=== PATIENT | male | born 1955 | race Caucasian/White ===

== ENCOUNTER 2021-06-27 14:31 | Outpatient (CLI) | payer MEDICARE ==
[2021-06-27 16:08] LABS: #Basophils 0.1 10x3/uL (0.0-0.2); #Eosinphils 0.7 10x3/uL (0.0-0.5); %Basophils 1.1 % (0.0-2.0); %Eosinophils 5.8 % (0.0-6.0); %Lymphocytes 20.3 % (18.0-47.0); %Monocytes 7.8 % (0.0-10.0); %Neutrophils 64.7 % (40.0-75.0); Hemoglobin 13.5 g/dL (13.5-17.5); Mean Corpuscular HGB CONC 32.8 g/dL (32.0-36.0); Mean Corpuscular Hemoglobin 30.7 pg (27.0-33.0); Mean Corpuscular Volume 93.6 fl (81.2-95.1); Mean Platelet Volume 10.3 fl (7.4-10.4); Platelet Count 217 10x3/uL (150-450); RBC Distribution Width 13.1 % (11.5-14.5); White Blood Cell (WBC) Count 12.3 10x3/uL (3.5-10.5)
[2021-06-28 08:02] LABS: SARS-CoV-2 PCR by NAA Not Detected (NotDetected)
== END 2021-06-27 14:32 | disposition home or self-care (01) ==
LOC: LABBT 14:31
PROVIDERS: ATTEND Surgery
DX: Z01.818 Encounter for other preprocedural examination (principal); C25.9 Malignant neoplasm of pancreas, unspecified; Z20.822 Contact with and (suspected) exposure to COVID-19
CPT/HCPCS: 85025; U0003; U0005

== ENCOUNTER 2021-06-29 08:00 | Day surgery (SDC) | payer MEDICARE, BC ==
[2021-06-28 10:17] VITALS: BMI 26.4
[2021-06-29] MEDS ORDERED: Propofol 500 MG/50 ML VIAL ONE (09:19)
[2021-06-29] MEDS ORDERED: Midazolam HCl 2 mg/2 ml Vial ONE (09:19)
[2021-06-29] MEDS ORDERED: Fentanyl 100 MCG/2 ML VIAL ONE (09:19)
[2021-06-29] MEDS ORDERED: PROPOFOL 200 MG/20 ML VIAL ONE (09:35)
[2021-06-29] MEDS ORDERED: Lidocaine 1% PF 5 ML VIAL ONE (09:35)
[2021-06-29] MEDS ORDERED: Bupivacaine 0.25% HCL 30 ML VIAL ONE (09:49)
[2021-06-29] MEDS ORDERED: Lidocaine 1% w/Epinephrine 1:100K 20 ML VIAL ONE (09:49)
== END 2021-06-29 11:32 | disposition home or self-care (01) ==
LOC: SDC 08:00
PROVIDERS: ATTEND Surgery
PROC: 0JH60WZ Insertion of Totally Implantable Vascular Access Device into Chest Subcutaneous Tissue and Fascia, Open Approach (ICD-10-PCS; principal; 2021-06-29)
PROC: 02HV33Z Insertion of Infusion Device into Superior Vena Cava, Percutaneous Approach (ICD-10-PCS; 2021-06-29)
DX: C25.9 Malignant neoplasm of pancreas, unspecified (principal); J30.2 Other seasonal allergic rhinitis; Z87.891 Personal history of nicotine dependence; Z79.899 Other long term (current) drug therapy
CPT/HCPCS: 71045; C1788; J0690; J1642; J2250; J2704; J3010; S0020

== ENCOUNTER 2022-09-18 12:11 | Day surgery (SDC) | payer MEDICARE, BC ==
[2022-09-18] MEDS ORDERED: diphenhydrAMINE 25 MG CAP ONE (12:53)
[2022-09-18] MEDS ORDERED: Acetaminophen 500 MG TAB ONE (12:53)
[2022-09-18] MEDS ORDERED: Acetaminophen 500 MG TAB PO SCH (13:00)
[2022-09-18] MEDS ORDERED: diphenhydrAMINE 25 MG CAP PO SCH (13:00)
[2022-09-18 15:37] VITALS: BP 156/83; TEMP 98.3
== END 2022-09-18 15:38 | disposition home or self-care (01) ==
LOC: ONC/OP 12:11
PROVIDERS: ATTEND Internal Medicine Hematology & Oncology
PROC: 30233N1 Transfusion of Nonautologous Red Blood Cells into Peripheral Vein, Percutaneous Approach (ICD-10-PCS; principal; 2022-09-18)
DX: D64.9 Anemia, unspecified (principal); D69.6 Thrombocytopenia, unspecified
CPT/HCPCS: 36430; 86850; 86900; 86901; J1642; P9016

== ENCOUNTER 2022-11-30 18:19 | Inpatient (IN) | payer OTHER, MEDICARE, BC ==
[2022-11-30 18:52] LABS: #Eosinphils 0.1 thou/uL (0.0-0.7); #Lymphocytes 1.5 thou/uL (1.20-3.40); #Monocytes 2.4 thou/uL (0.11-0.59); #Neutrophils 26.6 thou/uL (1.40-6.50); %Basophils 0.1 % (0.0-1.0); %Eosinophils 0.5 % (0.0-10.0); %Lymphocytes 4.9 % (21.0-51.0); %Monocytes 7.8 % (0.0-10.0); %Neutrophils 86.7 % (42.0-75.0); Hemoglobin 9.1 g/dL (14.0-18.0); Mean Corpuscular HGB CONC 31.9 g/dL (32.0-36.0); Mean Corpuscular Hemoglobin 29.3 pg (27.0-31.0); Mean Platelet Volume 7.5 fL (7.4-10.4); Platelet Count 369 10x3/uL (130-400); RBC Distribution Width 17.3 % (11.5-14.5); Red Blood Cell (RBC) Count 3.11 mill/uL (4.70-6.10); White Blood Cell (WBC) Count 30.7 10x3/uL (4.8-10.8)
[2022-11-30 19:13] LABS: ALT (SGPT) 26 U/L (8-55); AST (SGOT) 54 U/L (5-34); Albumin 3.2 g/dL (3.4-4.8); Alkaline Phosphatase 186 U/L (40-110); Anion Gap 13 mmol/L (10-20); BUN (Urea Nitrogen) 19 mg/dL (8.4-25.7); Bilirubin, Total 0.5 mg/dL (0.2-1.2); Calc. Creatinine Clearance 0 mL/min (70-130); Carbon Dioxide 23 mmol/L (23-31); Chloride 101 mmol/L (98-107); Estimated GFR 75; Globulin 4.7 g/dL (2.4-3.5); Glucose 116 mg/dL (80-115); Potassium 4.6 mmol/L (3.5-5.1); Protein, Total 7.9 g/dL (5.8-8.1); Sodium 132 mmol/L (136-145)
[2022-11-30] MEDS ORDERED: Morphine 4 MG/ML VIAL ONE ×2 (19:17→22:27)
[2022-11-30] MEDS ORDERED: Ondansetron PF 4 MG/2 ML Vial ONE (19:19)
[2022-11-30] MEDS ORDERED: TETANUS, DIPHTHERIA TOX,ADULT (TDVAX) 0.5 ML VIAL IM ONE (20:59)
[2022-11-30] MEDS ORDERED: hydrALAZINE 20 MG/ML VIAL SLOW IVP PRN (20:59)
[2022-11-30] MEDS ORDERED: Morphine 2 MG/ML VIAL SLOW IVP PRN (20:59)
[2022-11-30] MEDS ORDERED: Ipratropium/Albuterol 3 ML NEB NEB PRN (20:59)
[2022-11-30] MEDS ORDERED: Sodium Chloride 0.9% 1,000 ML IV SCH (21:00)
[2022-11-30] MEDS ORDERED: Ondansetron ODT 4 MG TAB SL PRN (21:00)
[2022-11-30] MEDS ORDERED: Ondansetron PF 4 MG/2 ML Vial IVP PRN (21:00)
[2022-11-30] MEDS ORDERED: Cyclobenzaprine 10 MG TAB PO PRN (21:02)
[2022-11-30] MEDS ORDERED: traMADol HCl 50 MG TAB PO PRN (21:02)
[2022-11-30] MEDS ORDERED: Acetaminophen 325 MG TAB PO SCH (23:59)
[2022-12-01] MEDS: Famotidine 20 MG TAB PO SCH ×3 (00:33→19:55)
[2022-12-01] MEDS: Acetaminophen 500 MG TAB PO SCH ×5 (00:37→23:06)
[2022-12-01] MEDS: traMADol HCl 50 MG TAB PO SCH ×5 (00:37→23:06)
[2022-12-01 01:05] LABS: SARS-CoV-2 NAA Rapid Test Not Detected (NotDetected)
[2022-12-01 01:18] VITALS: BMI 24.2
[2022-12-01 04:54] LABS: Bacteria/HPF None Seen HPF (None Seen); Bilirubin Negative (Negative); Blood, Urine Negative (Negative); CAUTI Indications for Culture Dysuria,urgency,freq; Clarity Clear (Clear); Glucose, Urine (Dipstick) Normal (Negative); Ketone, Urine Negative (Negative); Leukocyte Negative Leu/uL (Negative); Nitrite Negative (Negative); Protein, Urine (Dipstick) Negative (Neg-Trace); RBC/HPF 0-3 HPF (0-3); Specific Gravity, Urine 1.023 (1.002-1.036); Squamous Epithelial 0-3 HPF (0-3); Urobilinogen Normal mg/dL (Less than 2); WBC/HPF 0-3 HPF (0-3)
[2022-12-01 04:58] LABS: Urine Culture Reflex No No
[2022-12-01 05:45] LABS: #Basophils 0.1 thou/uL (0.0-0.2); #Eosinphils 0.3 thou/uL (0.0-0.7); #Lymphocytes 1.8 thou/uL (1.20-3.40); #Monocytes 2.2 thou/uL (0.11-0.59); #Neutrophils 21.8 thou/uL (1.40-6.50); %Basophils 0.2 % (0.0-1.0); %Eosinophils 1.1 % (0.0-10.0); %Monocytes 8.4 % (0.0-10.0); %Neutrophils 83.4 % (42.0-75.0); Hemoglobin 8.5 g/dL (14.0-18.0); Mean Corpuscular HGB CONC 30.9 g/dL (32.0-36.0); Mean Corpuscular Hemoglobin 28.9 pg (27.0-31.0); Mean Corpuscular Volume 93.5 fl (78.0-98.0); Mean Platelet Volume 7.6 fL (7.4-10.4); Platelet Count 333 10x3/uL (130-400); RBC Distribution Width 17.6 % (11.5-14.5); Red Blood Cell (RBC) Count 2.95 mill/uL (4.70-6.10); White Blood Cell (WBC) Count 26.2 10x3/uL (4.8-10.8)
[2022-12-01] MEDS ORDERED: CEFAZOLIN 2 GM in Sodium Chloride 0.9% 100 ML IVPB SCH ×2 (07:45→12:17)
[2022-12-01] MEDS: Sodium Bicarbonate Tab 325 MG TAB PO SCH ×4 (09:00→19:55)
[2022-12-01] MEDS ORDERED: CEFAZOLIN 2 GM VIAL ONE (09:58)
[2022-12-01] MEDS ORDERED: Sodium Chloride 0.9% 100 ML ONE (09:58)
[2022-12-01] MEDS ORDERED: Rocuronium Bromide 50 MG/5 ML VIAL ONE (10:01)
[2022-12-01] MEDS ORDERED: fentaNYL PF 100 MCG/2 ML SYRINGE ONE (10:01)
[2022-12-01] MEDS ORDERED: Ondansetron PF 4 MG/2 ML Vial ONE (10:10)
[2022-12-01] MEDS ORDERED: Rocuronium Bromide 10 MG/ML (10ML VIAL) ONE (10:10)
[2022-12-01] MEDS ORDERED: PROPOFOL 200 MG/20 ML VIAL ONE (10:10)
[2022-12-01] MEDS ORDERED: Lidocaine 1% PF 5 ML VIAL ONE (10:10)
[2022-12-01] MEDS ORDERED: Glycopyrrolate 0.2 MG/ML 5 ML SYRINGE ONE (10:10)
[2022-12-01] MEDS ORDERED: NEOSTIGMINE 3 MG/3 ML SYR 3 MG/3 ML SYRINGE ONE (10:10)
[2022-12-01] MEDS: DULoxetine 60 MG CAP PO SCH (13:48)
[2022-12-01] MEDS: Polyethylene Glycol 3350 17 GM Packet PO SCH (13:50)
[2022-12-01] MEDS: Senokot S 8.6-50 MG TAB PO SCH ×2 (13:50→19:55)
[2022-12-02] MEDS: traMADol HCl 50 MG TAB PO SCH ×2 (05:16→11:23)
[2022-12-02] MEDS: Acetaminophen 500 MG TAB PO SCH ×4 (05:16→23:00)
[2022-12-02] MEDS: Sodium Bicarbonate Tab 325 MG TAB PO SCH ×4 (08:01→19:29)
[2022-12-02] MEDS: Senokot S 8.6-50 MG TAB PO SCH ×2 (08:01→19:29)
[2022-12-02] MEDS: Polyethylene Glycol 3350 17 GM Packet PO SCH (08:01)
[2022-12-02] MEDS: DULoxetine 60 MG CAP PO SCH (08:01)
[2022-12-02] MEDS: Ascorbic Acid 500 mg Chewable Tablet PO SCH ×2 (08:01→19:29)
[2022-12-02] MEDS: Famotidine 20 MG TAB PO SCH ×2 (08:01→19:29)
[2022-12-02] MEDS: Ferrous Sulfate 325 MG TAB PO SCH ×2 (08:01→17:21)
[2022-12-02] MEDS: Aspirin 81 mg Enteric Coated Tablet PO SCH ×2 (08:01→19:29)
[2022-12-02] MEDS ORDERED: Acetaminophen/Codeine 30-300mg Tablet PO SCH (18:00)
[2022-12-03] MEDS: Acetaminophen 500 MG TAB PO SCH ×3 (05:24→17:01)
[2022-12-03 06:09] LABS: #Basophils 0.1 thou/uL (0.0-0.2); #Eosinphils 0.5 thou/uL (0.0-0.7); #Lymphocytes 1.6 thou/uL (1.20-3.40); #Neutrophils 24.2 thou/uL (1.40-6.50); %Basophils 0.2 % (0.0-1.0); %Eosinophils 1.7 % (0.0-10.0); %Lymphocytes 5.8 % (21.0-51.0); %Neutrophils 85.3 % (42.0-75.0); Mean Corpuscular Hemoglobin 30.2 pg (27.0-31.0); Mean Corpuscular Volume 94.1 fl (78.0-98.0); Mean Platelet Volume 7.2 fL (7.4-10.4); Platelet Count 263 10x3/uL (130-400); RBC Distribution Width 17.5 % (11.5-14.5); Red Blood Cell (RBC) Count 1.99 mill/uL (4.70-6.10); White Blood Cell (WBC) Count 28.3 10x3/uL (4.8-10.8)
[2022-12-03 06:26] LABS: Anion Gap 11 mmol/L (10-20); BUN (Urea Nitrogen) 23 mg/dL (8.4-25.7); Calc. Creatinine Clearance 63 mL/min (70-130); Calcium 10.7 mg/dL (7.8-10.44); Carbon Dioxide 25 mmol/L (23-31); Chloride 101 mmol/L (98-107); Estimated GFR 65; Glucose 88 mg/dL (80-115); Magnesium 1.9 mg/dL (1.6-2.6); Phosphorus 2.9 mg/dL (2.3-4.7); Potassium 4.6 mmol/L (3.5-5.1); Sodium 132 mmol/L (136-145)
[2022-12-03] MEDS: Ferrous Sulfate 325 MG TAB PO SCH ×2 (08:18→17:01)
[2022-12-03] MEDS: Polyethylene Glycol 3350 17 GM Packet PO SCH (08:18)
[2022-12-03] MEDS: Senokot S 8.6-50 MG TAB PO SCH ×2 (08:18→20:32)
[2022-12-03] MEDS: Famotidine 20 MG TAB PO SCH (08:18)
[2022-12-03] MEDS: Aspirin 81 mg Enteric Coated Tablet PO SCH (08:18)
[2022-12-03] MEDS: DULoxetine 60 MG CAP PO SCH (08:18)
[2022-12-03] MEDS: Ascorbic Acid 500 mg Chewable Tablet PO SCH ×2 (08:18→20:33)
[2022-12-03] MEDS: Sodium Bicarbonate Tab 325 MG TAB PO SCH ×4 (08:18→20:32)
[2022-12-03] MEDS ORDERED: Naproxen 500 MG TAB PO PRN (12:08)
[2022-12-04] MEDS: Acetaminophen 500 MG TAB PO SCH ×4 (01:10→18:02)
[2022-12-04] MEDS ORDERED: FLU VACC QS2022-23(65YR UP)/PF 240 MCG/0.7 ML SYRINGE IM ONE (09:00)
[2022-12-04] MEDS: Ascorbic Acid 500 mg Chewable Tablet PO SCH ×3 (10:03→20:10)
[2022-12-04] MEDS: Sodium Bicarbonate Tab 325 MG TAB PO SCH ×5 (10:03→20:11)
[2022-12-04] MEDS: Senokot S 8.6-50 MG TAB PO SCH ×2 (10:03→20:08)
[2022-12-04] MEDS: Ferrous Sulfate 325 MG TAB PO SCH ×2 (10:03→18:02)
[2022-12-04] MEDS: DULoxetine 60 MG CAP PO SCH (10:04)
[2022-12-04] MEDS: Polyethylene Glycol 3350 17 GM Packet PO SCH (10:04)
[2022-12-04 10:38] LABS: Anion Gap 12 mmol/L (10-20); BUN (Urea Nitrogen) 17 mg/dL (8.4-25.7); Calc. Creatinine Clearance 81 mL/min (70-130); Calcium 10.9 mg/dL (7.8-10.44); Carbon Dioxide 25 mmol/L (23-31); Chloride 99 mmol/L (98-107); Estimated GFR 87; Glucose 90 mg/dL (80-115); Magnesium 1.9 mg/dL (1.6-2.6); Phosphorus 2.2 mg/dL (2.3-4.7); Potassium 4.7 mmol/L (3.5-5.1); Sodium 131 mmol/L (136-145)
[2022-12-04 10:42] LABS: Anisocytosis SLIGHT = 6-15 cells (100X) (0-5/hpf); Band 7 % (5-11); Eosinophils 1 % (0-10); Hemoglobin 7.7 g/dL (14.0-18.0); Hypochromia SLIGHT = 6-15 cells (100X) (0-5/hpf); Lymphocytes 2 % (21-51); MDiff Complete? YES; Mean Corpuscular HGB CONC 31.2 g/dL (32.0-36.0); Mean Corpuscular Hemoglobin 29.2 pg (27.0-31.0); Mean Corpuscular Volume 93.5 fl (78.0-98.0); Mean Platelet Volume 7.4 fL (7.4-10.4); Monocytes 3 % (0-10); Neutrophil 86 % (42-75); Platelet Count 311 10x3/uL (130-400); Platelet Morphology Comment Appears Adequate; Polychromasia SLIGHT = 2-3 cells (100X) (0-2/hpf); RBC Distribution Width 17.6 % (11.5-14.5); Reactive Lymphocytes 1 % (0-10); Red Blood Cell (RBC) Count 2.63 mill/uL (4.70-6.10); Stomatocytes SLIGHT = 2-5 cells (100X) (0-1/hpf); Target Cells SLIGHT = 2-5 cells (100X) (0-1/hpf); White Blood Cell (WBC) Count 33.6 10x3/uL (4.8-10.8)
[2022-12-05] MEDS: Acetaminophen 500 MG TAB PO SCH ×5 (00:01→23:14)
[2022-12-05 04:52] LABS: Anisocytosis SLIGHT = 6-15 cells (100X) (0-5/hpf); Band 1 % (5-11); Eosinophils 2 % (0-10); Hemoglobin 7.7 g/dL (14.0-18.0); Lymphocytes 6 % (21-51); MDiff Complete? YES; Mean Corpuscular HGB CONC 32.4 g/dL (32.0-36.0); Mean Corpuscular Hemoglobin 30.2 pg (27.0-31.0); Mean Corpuscular Volume 93.2 fl (78.0-98.0); Mean Platelet Volume 7.4 fL (7.4-10.4); Monocytes 9 % (0-10); Neutrophil 82 % (42-75); Platelet Count 306 10x3/uL (130-400); Platelet Morphology Comment Appears Adequate; Polychromasia SLIGHT = 2-3 cells (100X) (0-2/hpf); RBC Distribution Width 17.8 % (11.5-14.5); Red Blood Cell (RBC) Count 2.54 mill/uL (4.70-6.10); Vacuoles SLIGHT; White Blood Cell (WBC) Count 34.3 10x3/uL (4.8-10.8)
[2022-12-05 04:54] LABS: Anion Gap 11 mmol/L (10-20); BUN (Urea Nitrogen) 15 mg/dL (8.4-25.7); Calc. Creatinine Clearance 97 mL/min (70-130); Calcium 10.5 mg/dL (7.8-10.44); Carbon Dioxide 24 mmol/L (23-31); Chloride 98 mmol/L (98-107); Estimated GFR 97; Glucose 94 mg/dL (80-115); Magnesium 1.8 mg/dL (1.6-2.6); Potassium 4.2 mmol/L (3.5-5.1); Sodium 129 mmol/L (136-145)
[2022-12-05] MEDS ORDERED: Sodium Phosphate 30 MMOL in Sodium Chloride 0.9% 250 ML 250 ML IVPB SCH (09:00)
[2022-12-05] MEDS: Senokot S 8.6-50 MG TAB PO SCH ×2 (10:24→20:40)
[2022-12-05] MEDS: Ascorbic Acid 500 mg Chewable Tablet PO SCH ×2 (10:25→20:39)
[2022-12-05] MEDS: Ferrous Sulfate 325 MG TAB PO SCH ×2 (10:25→17:59)
[2022-12-05] MEDS: DULoxetine 60 MG CAP PO SCH (10:25)
[2022-12-05] MEDS: Polyethylene Glycol 3350 17 GM Packet PO SCH (10:25)
[2022-12-05] MEDS: Sodium Bicarbonate Tab 325 MG TAB PO SCH ×4 (10:26→20:39)
[2022-12-05] MEDS: Melatonin 3 MG TAB PO SCH (20:39)
[2022-12-06] MEDS: Acetaminophen 500 MG TAB PO SCH ×5 (05:17→17:21)
[2022-12-06 05:49] LABS: Anion Gap 11 mmol/L (10-20); BUN (Urea Nitrogen) 17 mg/dL (8.4-25.7); Calc. Creatinine Clearance 100 mL/min (70-130); Carbon Dioxide 26 mmol/L (23-31); Chloride 98 mmol/L (98-107); Estimated GFR 98; Glucose 99 mg/dL (80-115); Magnesium 1.9 mg/dL (1.6-2.6); Phosphorus 2.6 mg/dL (2.3-4.7); Potassium 3.7 mmol/L (3.5-5.1); Sodium 131 mmol/L (136-145)
[2022-12-06] MEDS ORDERED: PHOS-NAK 1 PKT PACK PO SCH (07:45)
[2022-12-06] MEDS: DULoxetine 60 MG CAP PO SCH (09:01)
[2022-12-06] MEDS: Senokot S 8.6-50 MG TAB PO SCH ×2 (09:01→20:13)
[2022-12-06] MEDS: Ferrous Sulfate 325 MG TAB PO SCH ×2 (09:01→17:21)
[2022-12-06] MEDS: Polyethylene Glycol 3350 17 GM Packet PO SCH (09:02)
[2022-12-06] MEDS: Ascorbic Acid 500 mg Chewable Tablet PO SCH ×2 (09:02→20:13)
[2022-12-06] MEDS: Sodium Bicarbonate Tab 325 MG TAB PO SCH ×4 (09:02→20:13)
[2022-12-06] MEDS: Melatonin 3 MG TAB PO SCH (20:13)
[2022-12-06 21:40] VITALS: BP 125/79; TEMP 98.5
== END 2022-12-06 21:15 | DRG 521 ==
LOC: ERS 18:19 → SJJU 21:02
PROVIDERS: ADMIT Surgery; ATTEND Surgery
PROC: 0SRR019 Replacement of Right Hip Joint, Femoral Surface with Metal Synthetic Substitute, Cemented, Open Approach (ICD-10-PCS; principal; 2022-12-01)
PROC: 30233N1 Transfusion of Nonautologous Red Blood Cells into Peripheral Vein, Percutaneous Approach (ICD-10-PCS; 2022-12-03)
DX: S72.001A Fracture of unspecified part of neck of right femur, initial encounter for closed fracture (principal); G92.8 Other toxic encephalopathy; C25.9 Malignant neoplasm of pancreas, unspecified; C78.7 Secondary malignant neoplasm of liver and intrahepatic bile duct; D62 Acute posthemorrhagic anemia; E87.1 Hypo-osmolality and hyponatremia; Z20.822 Contact with and (suspected) exposure to COVID-19; M19.90 Unspecified osteoarthritis, unspecified site; T40.2X5A Adverse effect of other opioids, initial encounter; E83.52 Hypercalcemia; F41.9 Anxiety disorder, unspecified; F32.A Depression, unspecified; W01.0XXA Fall on same level from slipping, tripping and stumbling without subsequent striking against object, initial encounter; Y93.89 Activity, other specified; Y92.480 Sidewalk as the place of occurrence of the external cause; Z90.89 Acquired absence of other organs; Z90.49 Acquired absence of other specified parts of digestive tract; Z87.891 Personal history of nicotine dependence; Z79.899 Other long term (current) drug therapy
CPT/HCPCS: 36415; 36430; 70450; 71045; 72170; 80048; 80053; 81001; 83735; 84100; 84484; 85014; 85018; 85025; 86850; 86900; 86901; 88307; 88342; 93005; 94760; 96374; 96375; 96376; C1713; C1776; J0360; J1642; J1650; J2270; J2405; J2704; J3490; J7050; P9016; U0002